=== PATIENT | male | born 1995 | race Caucasian/White ===

== ENCOUNTER 2018-04-10 14:29 | Emergency (ER) | payer MEDICAID, OTHER ==
[2018-04-10 14:56] VITALS: BP 123/67
[2018-04-10] MEDS ORDERED: ibuprofen tablet 400 MG TABLET PO ONE (15:40)
== END 2018-04-10 16:08 | disposition home or self-care (01) ==
LOC: ER 14:30
DX: S93.401A Sprain of unspecified ligament of right ankle, initial encounter (principal); F12.90 Cannabis use, unspecified, uncomplicated; Z88.8 Allergy status to other drugs, medicaments and biological substances; W18.39XA Other fall on same level, initial encounter; Y93.67 Activity, basketball; Y92.89 Other specified places as the place of occurrence of the external cause; Y99.8 Other external cause status
CPT/HCPCS: 29515; 73610; 99284; A6449